=== PATIENT | male | born 1995 | race Hispanic/Latino ===

== ENCOUNTER 2020-01-25 01:46 | Emergency (ER) | payer SELFPAY ==
[2020-01-25] MEDS ORDERED: ROCURONIUM 50 MG/5 ML INJ IV ONE (02:01)
[2020-01-25] MEDS ORDERED: AMMONIA INHALANT IH ONE (02:01)
[2020-01-25] MEDS ORDERED: ETOMIDATE 20 MG/10 ML INJ IV ONE (02:01)
[2020-01-25] MEDS ORDERED: NALOXONE 2 MG/2 ML INJ ONE (02:04)
[2020-01-25] MEDS ORDERED: ONDANSETRON 4 MG/2 ML INJ ONE (02:12)
[2020-01-25] MEDS ORDERED: SODIUM CHLORIDE 0.9% 1000 ML 1,000 ML IV ONE (02:15)
--- NOTE | 2020-01-25 02:16 | Emergency Department Report ---
ED Altered Mental Status HPI - General Chief Complaint: Overdose Stated Complaint: AMS PUI?: No Time Seen by Provider: 01/25/20 02:11 Source: EMS Mode of arrival: Stretcher Limitations: Altered Mental Status - History of Present Illness Initial Comments: Patient is a 24-year-old male that presents emergency room with EMS for ove rdose, altered mental status. EMS report received. EMS states that the patient was alert and oriented x2 and confused however once they arrived to the ER the patient became nonverbal and minimally responsive. Patient was brought in from a local hotel. Patient told EMS that he was using marijuana only. Patient is minimally responsive. Patient is not respond to painful stimuli. Ammonia salts placed over the patient's nose and the patient woke up. Patient is verbal. Patient is now alert and oriented x3. Patient states he was using meth and marijuana and then took GHB to come down.. MD Complaint: altered mental status, decreased responsiveness -: Sudden Severity: severe Consistency of Symptoms: waxing and waning, constant - Related Data Allergies Allergy/AdvReac Type Severity Reaction Status Date / Time No Known Allergies Allergy Unverified 01/25/20 03:19 ED Review of Systems ROS: Stated complaint: AMS Other details as noted in HPI Comment: All other systems reviewed and negative ED Past Medical Hx - Past Medical History Previous Medical History?: No Additional medical history: Unknown - Surgical History Past Surgical History?: No Additional Surgical History: Unknown - Family History Family history: no significant - Social History Smoking Status: Unknown if ever smoked Substance Use Type: Marijuana, Methamphetamines ED Physical Exam - General Limitations: Altered Mental Status General appearance: alert, in no apparent distress - Head Head exam: Present: atraumatic, normocephalic - Eye Eye exam: Present: normal appearance, PERRL Pupils: Present: normal accommodation - ENT ENT exam: Present: mucous membranes dry - Neck Neck exam: Present: normal inspection - Respiratory Respiratory exam: Present: normal lung sounds bilaterally. Absent: respiratory distress - Cardiovascular Cardiovascular Exam: Present: regular rate, normal rhythm. Absent: systolic murmur, diastolic murmur, rubs, gallop - GI/Abdominal GI/Abdominal exam: Present: soft, normal bowel sounds - Rectal Rectal exam: Present: deferred - Extremities Exam Extremities exam: Present: normal inspection - Back Exam Back exam: Present: normal inspection - Neurological Exam Neurological exam: Present: alert, oriented X3 - Psychiatric Psychiatric exam: Present: normal affect, normal mood - Skin Skin exam: Present: warm, dry, intact, normal color. Absent: rash - Assessment Assessment Interval: Baseline - Level of Consciousness 1a. Level of Consciousness: arousable/minor stimuli - LOC Questions 1b. LOC Questions: answers 1 question correctly - LOC Command 1c. LOC Commands: performs 1 task correctly - Best Gaze 2. Best Gaze: normal - Visual 3. Visual: no visual loss - Facial Palsy 4. Facial Palsy: normal symmetrical movement - Motor Arm 5a. Motor Arm Left: no drift 5b. Motor Arm Right: no drift - Motor Leg 6a. Motor Leg Left: no drift 6b. Motor Leg Right: no drift - Limb Ataxia 7. Limb Ataxia: absent - Sensory 8. Sensory: normal - Best Language 9. Best Language: no aphasia - Dysarthria 10. Dysarthria: normal - Extinction and Inattention 11. Extinction/Inattention: no abnormality - Scoring Total Score: 3 Stroke Severity: Minor Stroke ED Course Vital Signs 01/25/20 01/25/20 01/25/20 02:00 03:20 03:23 Temperature 97.6 F Pulse Rate 86 87 Respiratory 13 13 15 Rate Blood Pressure 139/86 112/69 [Left] O2 Sat by Pulse 97 98 98 Oximetry 01/25/20 03:46 Temperature Pulse Rate 94 H Respiratory 13 Rate Blood Pressure 122/66 [Left] O2 Sat by Pulse 100 Oximetry - Reevaluation(s) Reevaluation #1: Some labs pending and head CT results pending. Patient is alert and oriented x4. Patient states he was doing drugs tonight. Patient states he took meth and GHB. Patient states he was trying to get high. Patient denies suicidal and homicidal ideations. Patient states he had no intention of hurting himself. Patient answering all questions appropriately. Patient is awake. Patient states he does not want to be in the hospital anymore. Patient states he would like to leave. I discussed the risk with the patient of leaving the hospital prior to having all results and the patient voiced understanding the risk. Patient signed AMA form. The nurse witnessed the signing of the form and discussion. Patient left the hospital AGAINST MEDICAL ADVICE. Even though the patient is leaving AGAINST MEDICAL ADVICE, the patient will be given discharge instructions. I discussed all results and clinical findings with patient. Patient given discharge instructions. Patient voiced understanding of discharge instructions. 01/25/20 03:34 - Lab Data Result diagrams: 01/25/20 03:08 01/25/20 03:08 Lab Results 01/25/20 01/25/20 01/25/20 Range/Units 03:08 03:08 03:08 WBC 9.3 (4.5-11.0) K/mm3 RBC 5.37 H (3.65-5.03) M/mm3 Hgb 13.6 (11.8-15.2) gm/dl Hct 42.2 (35.5-45.6) % MCV 79 L (84-94) fl MCH 25 L (28-32) pg MCHC 32 (32-34) % RDW 17.3 H (13.2-15.2) % Plt Count 192 (140-440) K/mm3 Lymph % (Auto) 26.9 (13.4-35.0) % Canadian % (Auto) 7.2 (0.0-7.3) % Eos % (Auto) 1.6 (0.0-4.3) % Baso % (Auto) 0.8 (0.0-1.8) % Lymph # (Auto) 2.5 (1.2-5.4) K/mm3 Canadian # (Auto) 0.7 (0.0-0.8) K/mm3 Eos # (Auto) 0.1 (0.0-0.4) K/mm3 Baso # (Auto) 0.1 (0.0-0.1) K/mm3 Seg Neutrophils % 63.5 (40.0-70.0) % Seg Neutrophils # 5.9 (1.8-7.7) K/mm3 Sodium 138 (137-145) mmol/L Potassium 4.0 (3.6-5.0) mmol/L Chloride 98.6 (98-107) mmol/L Carbon Dioxide 22 (22-30) mmol/L Anion Gap 21 mmol/L BUN 15 (9-20) mg/dL Creatinine 0.9 (0.8-1.3) mg/dL Estimated GFR > 60 ml/min BUN/Creatinine Ratio 17 % Glucose 106 H (75-100) mg/dL Lactic Acid 1.00 (0.7-2.0) mmol/L Calcium 9.5 (8.4-10.2) mg/dL Total Bilirubin 0.50 (0.1-1.2) mg/dL AST 25 (5-40) units/L ALT 15 (7-56) units/L Alkaline Phosphatase 73 (35-129) units/L Total Creatine Kinase 547 H (55-170) units/L Total Protein 8.6 H (6.3-8.2) g/dL Albumin 4.8 (3.9-5) g/dL Albumin/Globulin Ratio 1.3 % Salicylates (2.8-20.0) mg/dL Acetaminophen (10.0-30.0) ug/mL Plasma/Serum Alcohol (0-0.07) % 01/25/20 01/25/20 01/25/20 Range/Units 03:08 03:08 03:08 WBC (4.5-11.0) K/mm3 RBC (3.65-5.03) M/mm3 Hgb (11.8-15.2) gm/dl Hct (35.5-45.6) % MCV (84-94) fl MCH (28-32) pg MCHC (32-34) % RDW (13.2-15.2) % Plt Count (140-440) K/mm3 Lymph % (Auto) (13.4-35.0) % Canadian % (Auto) (0.0-7.3) % Eos % (Auto) (0.0-4.3) % Baso % (Auto) (0.0-1.8) % Lymph # (Auto) (1.2-5.4) K/mm3 Canadian # (Auto) (0.0-0.8) K/mm3 Eos # (Auto) (0.0-0.4) K/mm3 Baso # (Auto) (0.0-0.1) K/mm3 Seg Neutrophils % (40.0-70.0) % Seg Neutrophils # (1.8-7.7) K/mm3 Sodium (137-145) mmol/L Potassium (3.6-5.0) mmol/L Chloride (98-107) mmol/L Carbon Dioxide (22-30) mmol/L Anion Gap mmol/L BUN (9-20) mg/dL Creatinine (0.8-1.3) mg/dL Estimated GFR ml/min BUN/Creatinine Ratio % Glucose (75-100) mg/dL Lactic Acid (0.7-2.0) mmol/L Calcium (8.4-10.2) mg/dL Total Bilirubin (0.1-1.2) mg/dL AST (5-40) units/L ALT (7-56) units/L Alkaline Phosphatase (35-129) units/L Total Creatine Kinase (55-170) units/L Total Protein (6.3-8.2) g/dL Albumin (3.9-5) g/dL Albumin/Globulin Ratio % Salicylates < 0.3 L (2.8-20.0) mg/dL Acetaminophen 5.0 L (10.0-30.0) ug/mL Plasma/Serum Alcohol < 0.01 (0-0.07) % - Radiology Data Radiology results: report reviewed CT head/brain wo con INDICATION: Altered Mental Status. TECHNIQUE: All CT scans at this location are performed using CT dose reduction for ALARA by means of automated exposure control. COMPARISON: None available. FINDINGS: Imaged paranasal and mastoid sinuses are clear. Ventricles are symmetrical and normal in size. No mass, hemorrhage or other significant abnormality. IMPRESSION: 1. Negative study. - Medical Decision Making Patient is a 24-year-old male who is brought in by EMS for altered mental status and overdose. Patient altered. Patient upon initial evaluation found to be minimally responsive and ammonia salts were used and the patient immediately woke up and was alert and oriented x4. Patient admitted to taking GHB and meth. Patient overdosed secondary to try to get high and the patient denies any intention of hurting himself or suicidal ideations. Patient alert awake and oriented and the patient did not want to stay in the hospital any longer and the patient signed out AMA. Patient had labs pending and his head CT was still pending. Patient said he did not want to wait for the results. Patient signed AMA form. Patient left the hospital AGAINST MEDICAL ADVICE. After the patient left the hospital, the patient's labs came back and the patient's head CT came back. Patient's head CT is negative for acute findings. Patient's labs are essentially unremarkable. - Differential Diagnosis Overdose, accidental overdose. Critical Care Time: Yes Critical care time in (mins) excluding proc time.: 35 Critical care attestation.: If time is entered above; I have spent that time in minutes in the direct care of this critically ill patient, excluding procedure time. Critical Care Time: 35 minutes ED Disposition Clinical Impression: Overdose Qualifiers: Encounter type: initial encounter Injury intent: accidental or unintentional Qualified Code(s): T50.901A - Poisoning by unspecified drugs, medicaments and biological substances, accidental (unintentional), initial encounter Altered mental state Qualifiers: Altered mental status type: unspecified Qualified Code(s): R41.82 - Altered mental status, unspecified Disposition: DC-07 LEFT AGAINST MED ADVICE Is pt being admited?: No Does the pt Need Aspirin: No Condition: Critical Instructions: Methamphetamine Abuse (ED) Additional Instructions: Patient to follow-up with primary care in 2 to 3 days. Patient to follow-up with rehabilitation center in 2 to 3 days. Patient to rest. Patient to increase water. Patient to avoid drug use and alcohol use. Patient to take Tylenol or ibuprofen as needed for pain. Patient to return to the ER if condition worsens, changes or new symptoms arise. Referrals: PRIMARY CARE, [Primary Care Provider] - 2-3 Days Forms: AMA Form Time of Disposition: 03:37
--- NOTE | 2020-01-25 03:26 | Cat Scan Report ---
CT head/brain wo con INDICATION: Altered Mental Status. TECHNIQUE: All CT scans at this location are performed using CT dose reduction for ALARA by means of automated e xposure control. COMPARISON: None available. FINDINGS: Imaged paranasal and mastoid sinuses are clear. Ventricles are symmetrical and normal in size. No mas s, hemorrhage or other significant abnormality. IMPRESSION: 1. Negative study. Signer Name: Ernie Cordero MD Signed: 01/25/2020 3:21 AM Workstation Name: [id number]
[2020-01-25 03:47] VITALS: BP 122/66
[2020-01-25 03:52] LABS: Alanine Aminotransferase 15 units/L (7-56); Albumin 4.8 g/dL (3.9-5); BUN/Creatinine Ratio 17; Basophils # (Auto) 0.1 K/mm3 (0.0-0.1); Basophils % (Auto) 0.8 % (0.0-1.8); Blood Urea Nitrogen 15 mg/dL (9-20); Calcium 9.5 mg/dL (8.4-10.2); Eosinophils # (Auto) 0.1 K/mm3 (0.0-0.4); Eosinophils % (Auto) 1.6 % (0.0-4.3); Hematocrit 42.2 % (35.5-45.6); Hemoglobin 13.6 gm/dl (11.8-15.2); Hemolysis Index 11; Lymphocytes # (Auto) 2.5 K/mm3 (1.2-5.4); Lymphocytes % (Auto) 26.9 % (13.4-35.0); Mean Corpuscular HGB Conc 32 % (32-34); Mean Corpuscular Volume 79 fl (84-94); Monocytes # (Auto) 0.7 K/mm3 (0.0-0.8); Monocytes % (Auto) 7.2 % (0.0-7.3); Platelet Count 192 K/mm3 (140-440); Red Blood Count 5.37 M/mm3 (3.65-5.03); Red Cell Distribution Width 17.3 % (13.2-15.2)
== END 2020-01-25 03:58 | disposition left against medical advice (07) ==
LOC: ED 01:46
DX: R41.82 Altered mental status, unspecified (principal); T65.91XA Toxic effect of unspecified substance, accidental (unintentional), initial encounter; Y92.89 Other specified places as the place of occurrence of the external cause
CPT/HCPCS: 36415; 70450; 80053; 82140; 82550; 85025; 93005; 96360; 99285; J2310; J2405; J7030; 80320; G0480